=== PATIENT | female | born 2000 | race Caucasian/White ===

== ENCOUNTER 2025-02-12 14:12 | Emergency (ER) | payer OTHER, SELFPAY ==
[2025-02-12 14:37] VITALS: BP 120/69; PULSE 88; RESP 18; TEMP 37.1; O2SAT 99; BMI 40.8
--- NOTE | 2025-02-12 14:45 | XR_ITS ---
EXAMINATION: CT head/brain wo con ORDERING PROVIDER: GUILLERMO Bear HISTORY: diziness TECHNIQUE: CT scanner was used in the volumetric, helical non-contrast acquisition of the head with 2-D and 3-D reformats created on a separate workstation and submitted for interpretation. Institutional dose reducing protocols were utilized. RADIATION DOSE: DLP 967 mGy-cm COMPARISON: None. FINDINGS: BRAIN: No acute intracranial hemorrhage, mass effect, or midline shift. CAMPO-WHITE DIFFERENTIATION: Preserved. EXTRA-AXIAL SPACES: No abnormal collection. SULCI: Normal. VENTRICLES: Normal. BASAL CISTERNS: Normal. VESSELS: No hyperdense vessel sign. DURAL VENOUS SINUSES: Symmetric attenuation. POSTERIOR FOSSA: Normal. MASTOID AIR CELLS: Clear. PARANASAL SINUSES: Clear. ORBITS: Normal. BONES: Normal. SCALP: Prominent right posterior occipital lymph node, mildly rounded, measuring up to 7 mm. IMPRESSION: 1. No acute intracranial hemorrhage, mass effect, or midline shift. 2. Prominent subcentimeter right occipital lymph node. This could be reactive. Attention on follow-up clinical exam. Follow-up ultrasound is available as clinically indicated.
--- NOTE | 2025-02-12 14:45 | EKG_ITS ---
[facility] Test Date: 2025-02-12 Pat Name: MICHAEL COLÓN Department: Room: - Gender: Female [employer]: : 2000 Requested By: Joy Sears Order Number: [id number] Reading MD: Joy Sears Measurements Intervals [place] Rate: 95 P: 14 W[place]: 156 QRS: -2 QRSD: 88 T: 14 QT: 338 QTc: 425 Interpretive Statements SINUS RHYTHM MODERATE VOLTAGE CRITERIA FOR LVH, CONSIDER NORMAL VARIANT [MEETS CRITERIA IN ONE OF: R(aVL), S(V1), R(V5), R(V5/V6)+S(V1)] No previous ECG available for comparison /store/S0/[id number]/[id number].pdf
[2025-02-12 15:07] LABS: Basophils # (Auto) 0.1 Thou/mm3 (0.0-0.2); Basophils % (Auto) 0 % (0-2.5); Eosinophils # (Auto) 0.1 Thou/mm3 (0.0-0.5); Eosinophils % (Auto) 1 % (0-10); Hematocrit 42.5 % (36.0-46.0); Hemoglobin 14.3 g/dL (12.0-16.0); Immature Granulocytes Auto 0.05 Thou/mm3 (0.00-0.00); Lymphocytes # (Auto) 2.9 Thou/mm3 (1.0-4.8); Lymphocytes % (Auto) 22 % (10-50); Mean Corpuscular HGB Conc 33.6 g/dl (31.0-37.0); Mean Corpuscular Hemoglobin 28.1 pg (25.0-35.0); Mean Corpuscular Volume 84 fL (80-100); Monocytes # (Auto) 0.8 Thou/mm3 (0.0-0.8); Monocytes % (Auto) 6 % (0-12); Neutrophils # (Auto) 9.4 Thou/mm3 (1.8-7.7); Neutrophils % (Auto) 70 % (37-80); Nucleated Red Blood Cell # 0.00 Thou/mm3 (0.00-0.00); Nucleated Red Blood Cell % 0 /100 WBC (0); Platelet Count 342 Thou/mm3 (140-440); RDW Standard Deviation 40.0 fL (36.4-46.3); Red Blood Count 5.09 Miln/mm3 (4.00-5.20); White Blood Count 13.4 Thou/mm3 (3.6-11.0)
[2025-02-12 15:25] LABS: Alanine Aminotransferase 17 U/L (10-49); Albumin, Serum 5.1 gm/dL (3.5-5.0); Albumin/Globulin Ratio 1.9 (1.2-2.2); Alkaline Phosphatase 65 U/L (46-116); Anion Gap 10 (7-16); Aspartate Amino Transferase 18 U/L (0-34); BUN/Creatinine Ratio 11 Ratio (12-20); Bilirubin,Total 0.4 mg/dL (0.3-1.2); Blood Urea Nitrogen 9 mg/dL (9-23); Calcium 9.8 mg/dL (8.3-10.6); Calcium (Corrected) 9.8 mg/dL (8.5-10.1); Carbon Dioxide 23.7 mMol/L (20.0-31.0); Chloride 105 mMol/L (98-107); Creatinine (Component) 0.8 mg/dL (0.6-1.3); Estimated Creatinine Clearance 150.5 mL/min (>60); Globulin 2.7 gm/dL (2.3-3.5); Glucose 127 mg/dL (74-106); Osmolality,Calculated 278 (275-295); Potassium 3.8 mMol/L (3.4-5.1); Sodium 139 mMol/L (136-145); Total Protein 7.8 gm/dL (5.7-8.2); Troponin I < 0.002 ng/mL (0.0-0.045); eGFR > 60 See Note
[2025-02-12 15:56] LABS: Collection Type, Urine Clean Catch
[2025-02-12 16:43] LABS: HCG Qualitative,Urine Negative
[2025-02-12 16:44] LABS: Bacteria,Urine Rare; Bilirubin,Urine Negative (Negative); Blood,Urine Negative (Negative); Clarity,Urine Clear (Clear/Hazy); Color,Urine Yellow (Lt Yel-Yel); Glucose, Urine Negative (Negative); Ketones,Urine Negative (Negative); Leukocyte Esterase,Urine Negative (Negative); Nitrite,Urine Negative (Negative); PH,Urine 6.0 (5.0-7.0); Protein,Urine Negative (Neg - Trace); RBC,Urine 4 /hpf (0-3); Specific Gravity,Urine 1.018 (1.001-1.035); Squamous Epithelial Cell,Urine 3 /hpf (0-5); Urobilinogen,Urine Negative mg/dL (0.0-1.0); WBC,Urine 2 /hpf (0-5)
--- NOTE | 2025-02-12 17:14 | PD.EDDIZZY ---
ED Dizzyness RME/HPI General Chief Complaint: Dizziness Stated Complaint: DIZZY, PASSED OUT, TWITCHING 5-10 SEC X 2 TIMES Time Seen by Provider: 02/12/25 14:18 Arrival date/time: 02/12/25 14:12 This is a case of 24-year-old female with no medical history came in in the emergency room due to dizziness history of present illness started 1 hour prior to arrival in the emergency room patient is at the bathroom felt sudden dizziness after turning his head on the right side patient stated that she almost passed out and lasted about 5 to 10 seconds patient denies twitching or any seizure episode patient is with his partner at the time of exam patient denies any chest pain shortness of breath palpitation denies any blurring of vision denies any headache denies any numbness weakness tingling sensation Limitations: no limitations Related Data Previous Rx's ?Medication ?Instructions ?Recorded ibuprofen 100 mg/5 mL oral 800 mg (40 mL) PO Q8H PRN pain 07/08/20 suspension #473 mL meclizine 50 mg tablet 50 mg PO Q8H PRN dizziness or 02/12/25 vertigo #20 tabs ondansetron 4 mg disintegrating 4 mg PO Q8H #20 tabs 02/12/25 tablet Allergies Allergy/AdvReac Type Severity Reaction Status Date / Time No Known Allergies Allergy Verified 02/12/25 14:15 Review of Systems Review of Systems Systems Reviewed: All systems reviewed, normal except as documented Constitutional Constitutional: Reports system reviewed and no additional complaints, except as documented, Reports as per HPI, Denies frequent falls, Denies headache(s) and Denies weakness Eyes Eyes: Denies loss of vision ENT Ears, Nose, Mouth, and Throat: Denies abnormal hearing, Denies disequilibrium, Reports dizziness, Denies headache(s) and Denies vertigo Cardiovascular Cardiovascular: Reports system reviewed and no additional complaints, except as documented, Reports as per HPI and Denies syncope Respiratory Respiratory: Reports system reviewed and no additional complaints, except as documented and Reports as per HPI Gastrointestinal Gastrointestinal: Reports system reviewed and no additional complaints, except as documented and Reports as per HPI Musculoskeletal Musculoskeletal: Reports system reviewed and no additional complaints, except as documented, Reports as per HPI, Denies abnormal gait, Denies numbness and Denies tingling Neurologic Neurologic: Reports system reviewed and no additional complaints, except as documented, Reports as per HPI, Denies abnormal gait, Denies abnormal hearing, Denies abnormal movements, Denies abnormal speech, Denies behavioral changes, Denies burning sensations, Denies confusion, Denies convulsions, Denies disequilibrium, Reports dizziness, Denies localized weakness, Denies frequent falls, Denies headache(s), Denies lack of coordination, Denies loss of vision, Denies memory loss, Denies numbness, Denies other visual disturbances, Denies paresthesias, Denies radicular pain, Denies restless legs, Denies seizure-like activity, Denies sensory deficit, Denies syncope, Denies tingling, Denies tremor(s), Denies vertigo and Denies weakness Psychiatric Psychiatric: Denies behavioral changes, Denies confusion and Denies memory loss Past Medical History Social History SMOKING STATUS: Never smoker ED Exam General Limitations: Present no limitations General appearance: Present alert, in no apparent distress and other (Patient is awake alert oriented not in distress nontoxic looking well-hydrated well nourished) Head Head exam: Present atraumatic, normocephalic and normal inspection Eye Eye exam: Present normal appearance, PERRL, EOMI and other (PERRL EOM intact normal conjunctiva no papilledema no hyphema) ENT ENT exam: Present normal exam, normal oropharynx, mucous membranes moist and other (HEENT exam is normal and unremarkable) Neck Neck exam: Present normal inspection, full ROM, trachea midline and other (Negative for meningeal sign); Absent tenderness, meningismus, lymphadenopathy or thyromegaly Chest Chest inspection: Present normal inspection and symmetric chest wall rise; Absent tenderness Respiratory Respiratory exam: Present normal lung sounds bilaterally; Absent respiratory distress, wheezes, stridor, accessory muscle use or prolonged expiratory phase Cardiovascular Cardiovascular exam: Present regular rate, normal rhythm and normal heart sounds; Absent bradycardia, tachycardia, irregular rhythm, systolic murmur or diastolic murmur Abdominal Exam Abdominal exam: Present soft and normal bowel sounds; Absent distention, tenderness, guarding, rebound, rigidity, diminished bowel sounds, hyperactive bowel sounds, hypoactive bowel sounds or organomegaly Extremities Exam Extremities exam: Present normal inspection and full ROM Back Exam Back exam: Present normal inspection and full ROM Neurological Exam Neurological exam: Present alert, oriented X3, CN II-XII intact, normal gait, reflexes normal and other (Awake alert oriented x 4 no focal deficit GCS 15/15 steady gait memory intact no slurring speech no facial droop CN II to XII is normal motor or sensory reflex were normal negative Babinski); Absent motor sensory deficit Psychiatric Psychiatric exam: Present normal affect and normal mood Skin Skin exam: Present warm, dry, intact, normal color and other (Excellent skin turgor) Course Quality Measures none Orders Category Date Time Status EKG (ED ONLY) *Do not use* NOW Care 02/12/25 14:[address] head/brain wo con Stat Exams 02/12/25 14:45 Completed EKG (ED Only) Stat Exams 02/12/25 14:45 Draft CBC Stat Lab 02/12/25 14:58 Completed Comprehensive Metabolic Panel Stat Lab 02/12/25 14:58 Completed HCG Qualitative,Urine Stat Lab 02/12/25 15:30 Completed Troponin I Stat Lab 02/12/25 14:58 Completed Urinalysis Stat Lab 02/12/25 15:30 Completed Vital Signs Vital signs: Vital Signs Temperature 98.7 F 02/12/25 14:37 Pulse Rate 88 02/12/25 14:37 Respiratory Rate 18 02/12/25 14:37 Blood Pressure 120/69 02/12/25 14:37 Pulse Oximetry (%) 99 02/12/25 14:37 Oxygen Delivery Method Room Air 02/12/25 14:37 Blood pressure is stable not tachycardic not tachypneic afebrile nonhypoxic patient oxygen saturation is 99% in room air Dizziness MDM Narrative MDM Narrative:: This is a case of 24-year-old female with no medical history came in in the emergency room due to dizziness history of present illness started 1 hour prior to arrival in the emergency room patient is at the bathroom felt sudden dizziness after turning his head on the right side patient stated that she almost passed out and lasted about 5 to 10 seconds patient denies twitching or any seizure episode patient is with his partner at the time of exam patient denies any chest pain shortness of breath palpitation denies any blurring of vision denies any headache denies any numbness weakness tingling sensation physical examination patient is awake alert oriented not in distress nontoxic looking well-hydrated well-nourished vital signs stable BP stable not tachycardic not tachypneic afebrile and nonhypoxic PERRL EOM intact normal conjunctiva no palpable edema no hyphema HEENT exam is normal and unremarkable negative for meningeal sign heart normal rate regular rhythm no murmur no edema lungs clear breath sounds equal no crackles no rales no retraction no wheezing abdominal exam is benign nonsurgical no guarding no rebound no rigidity no tenderness neurological exam is normal awake alert oriented x 4 no focal deficit CN II to XII is normal memory intact no facial droop no slurring of speech motor or sensory reflex are all normal in all extremities negative Babinski at the time of the exam patient denies any syncopal episode she only stated that she almost passed out she also denies any seizure episode as stated in the triage note blood test showed mild leukocytosis WBC is 13,000 no anemia platelet is normal kidney and liver function is normal no electrolyte imbalance urinalysis is normal troponin is negative EKG showed sinus rhythm at 95 CT scan of the head is also normal and unremarkable patient has no recurrence of dizziness no syncopal episode no seizure episode patient was stable to be discharged I have a long discussion with the patient patient will follow-up with PCP for reevaluation and possible referral to neurologist for dizziness and near syncope she also advised to see ENT specialist for vertigo for any recurrence persistent worsening symptoms or any emergent concern return precaution in the ER is advised Patient was discharged with comfortable condition walking with stable gait. Patient verbalized no further complains explained diagnosis and answered patient question. Patient is comfortable with the proposed management plan including the need to follow up with his/her primary care physician and any specialist if applicable Discussed patient for any urgent condition or worsening sx, He/She needed to go to emergency room immediately or call 911. Patient acknowledge the responsibility to follow up as instructed and to monitor her/his symptoms. For any persistence of the symptoms for more than 3-5 days return precaution advised. Discussed the result of the test and was given printed discharge instruction Patient data External records reviewed:: [facility] previous records Clinical information provided by:: patient Social determinants that could affect healthcare access:: none Patient has the following chronic illnesses:: None How is presenting disease/condition affected by chronic disease/condition?: no chronic disease Evaluation data The following diagnostics were reviewed and interpreted by me:: lab results, radiology exam(s) and EKG tracing(s) Lab and/or radiology exams considered but not ordered:: Reviewed Interpretation Summary: Reviewed Medications / Prescriptions Medications or Prescriptions considered but not ordered:: Given Medication administrations:: Given Consultations Consultation(s) initiated? (list below): No Diagnosis Dizziness Differential Diagnosis: benign paroxysmal positional vertigo, orthostatic hypotension, acute vestibular neuronitis and other (Urinary tract infection otitis media ) Most likely diagnosis given after review of the tests above:: Dizziness near syncope vertigo Admission Indicated Admission indicated?: not indicated Explain why admission is indicated or not indicated:: Not indicated Admission Request Was there a request for admission?: No Admission Attestation Admission request attestation: Not indicated Disposition Plan Disposition Plan: Discharge Discharge Attestation Discharge Attestation: The patient and all family members were given an opportunity to ask questions and understood the discharge instructions. Discharge instructions specifically effects, indications for sooner follow up or return to the emergency department, and the expected course of current diagnosis. Patient condition: Stable Discharge Plan Plan Patient Disposition: HOME (Self Care) Patient condition on transfer: Stable Prescriptions/Referrals Prescriptions/Med Rec: New meclizine 50 mg tablet 50 mg PO Q8H PRN (Reason: dizziness or vertigo) Qty: 20 0RF ondansetron 4 mg tablet,disintegrating 4 mg PO Q8H Qty: 20 0RF No Action ibuprofen 100 mg/5 mL suspension 800 mg PO Q8H PRN (Reason: pain) Qty: 473 1RF Referrals: Javed Colon MD [Primary Care Provider, Family Practice] - In 1 week Problem List Clinical Impression: Dizziness, Vertigo, Near syncope Patient/Caregiver Discharge Instructions Education Materials: Treating Syncope: Prevention, Vertigo Medicine Tx, Vertigo Staying Safe, ED Dizziness, Uncertain Cause Additional Instructions: Follow-up with your primary care physician in 2 days for reevaluation and to be referred to ENT specialist and neurologist for your dizziness and vertigo recurrence persistent on the symptoms return to the emergency room immediately or call 911 fall precaution is advised take your medication as directed keep hydrated Print Language: Albanian Stand Alone Forms: Terese Award Info., Patient Portal Info Letter PA/OPERATOR [employer] Supervising Physician PA/GUILLERMO Supervising Physician: Dr Summers
== END 2025-02-12 17:30 | disposition home or self-care (01) ==
PROVIDERS: Nurse Practitioner Family; Emergency Provider Emergency Medicine; PCP Specialist
DX: R42 Dizziness and giddiness (principal); R55 Syncope and collapse; R94.31 Abnormal electrocardiogram [ECG] [EKG]
CPT/HCPCS: 36415; 70450; 80053; 81001; 81025; 84484; 85025; 99283